=== PATIENT | female | born 1985 | race African-American/Black ===

== ENCOUNTER 2017-12-08 19:55 | Emergency (ER) | payer MEDICAID ==
[~2017-12-08] VITALS: Ht 170.2 cm; Wt 53.1 kg
[2017-12-08 20:12] VITALS: BP 108/76
== END 2017-12-09 02:15 | disposition left against medical advice (07) ==
LOC: ER 21:01
DX: F29 Unspecified psychosis not due to a substance or known physiological condition (principal); Z53.21 Procedure and treatment not carried out due to patient leaving prior to being seen by health care provider